=== PATIENT | male | born 1985 | race Hispanic/Latino ===

== ENCOUNTER 2017-12-22 09:41 | Emergency (ER) | payer OTHER ==
[2017-12-22 10:22] LABS: BASOPHILS % (AUTO) 0.7 % (0.0-5.0); EOSINOPHILS % (AUTO) 1.5 % (0.0-8.0); HEMATOCRIT 46.6 % (42-54); LYMPHOCYTES % (AUTO) 18.4 % (21.0-51.0); MEAN CORPUSCULAR HEMOGLOBIN 28.1 pg (27.0-33.0); MEAN CORPUSCULAR HGB CONC 34.7 g/dL (32.0-36.0); MONOCYTES % (AUTO) 6.2 % (3.0-13.0); NEUTROPHILS % (AUTO) 73.2 % (40.0-77.0); PLATELET COUNT (AUTO) 239 K/uL (130-400); RED BLOOD CELL COUNT(AUTO) 5.75 MIL/uL (4.50-6.20); RED CELL DISTRIBUTION WIDTH 13.6 % (11.0-15.5)
[2017-12-22] MEDS ORDERED: ONDANSETRON HCL MDV 20ML 2 MG/ML VIAL ONE (10:22)
[2017-12-22] MEDS ORDERED: MORPHINE SULFATE 4 MG/1ML SYG ONE (10:22)
[2017-12-22] MEDS ORDERED: SODIUM CHLORIDE 0.9% 1000ML 1,000 ML IV ONE (10:22)
[2017-12-22] MEDS ORDERED: LORAZEPAM 2 MG/ML 1 ML VIAL ONE (10:23)
[2017-12-22 10:53] LABS: CREATININE 0.9 mg/dL (0.5-1.5); POTASSIUM 3.8 mmol/L (3.5-5.1)
[2017-12-22 10:58] LABS: ALBUMIN 4.1 g/dL (3.5-5.0); BILIRUBIN,TOTAL 0.4 mg/dL (0.2-1.0); TOTAL PROTEIN, SERUM 8.2 g/dL (6.0-8.3)
== END 2017-12-22 13:44 | disposition home or self-care (01) ==
LOC: EDH 09:41
DX: T75.4XXA Electrocution, initial encounter (principal); M79.1 Myalgia; Z72.0 Tobacco use; W86.8XXA Exposure to other electric current, initial encounter; Y93.89 Activity, other specified; Y92.69 Other specified industrial and construction area as the place of occurrence of the external cause; Y99.8 Other external cause status
CPT/HCPCS: 36415; 71045; 73030; 80053; 82550; 84484; 85025; 93005; 96361; 96374; 96375; 99285; J2060; J2270; J7030

== ENCOUNTER 2018-02-16 09:19 | Emergency (ER) | payer OTHER ==
[2018-02-16] MEDS ORDERED: CEFTRIAXONE SODIUM 1 GM ONE (09:51)
[2018-02-16] MEDS ORDERED: SODIUM CHLORIDE 0.9% 1000ML 1,000 ML IV ONE (09:51)
[2018-02-16] MEDS ORDERED: DEXAMETHASONE SOD PHOSPHATE 10MG/ML 1ML VIAL ONE (09:51)
[2018-02-16] MEDS ORDERED: KETOROLAC TROMETHAMINE 30MG/ML ONE (09:52)
[2018-02-16 09:58] LABS: BASOPHILS % (AUTO) 0.5 % (0.0-5.0); EOSINOPHILS % (AUTO) 0.9 % (0.0-8.0); HEMATOCRIT 44.4 % (42-54); LYMPHOCYTES % (AUTO) 10.4 % (21.0-51.0); MEAN CORPUSCULAR HEMOGLOBIN 28.3 pg (27.0-33.0); MEAN CORPUSCULAR HGB CONC 34.8 g/dL (32.0-36.0); MEAN CORPUSCULAR VOLUME 81.4 fL (79-99); MONOCYTES % (AUTO) 8.9 % (3.0-13.0); NEUTROPHILS % (AUTO) 79.3 % (40.0-77.0); NUCLEATED RED BLOOD CELLS 0.1 % (0.0-0.19); PLATELET COUNT (AUTO) 195 K/uL (130-400); RED BLOOD CELL COUNT(AUTO) 5.45 MIL/uL (4.50-6.20); RED CELL DISTRIBUTION WIDTH 13.7 % (11.0-15.5); WHITE BLOOD COUNT (AUTO) 12.5 K/uL (4.8-10.8)
[2018-02-16 10:03] LABS: CREATININE 0.9 mg/dL (0.5-1.5)
== END 2018-02-16 11:11 | disposition home or self-care (01) ==
LOC: EDH 09:19
DX: J02.0 Streptococcal pharyngitis (principal); E86.0 Dehydration; R11.2 Nausea with vomiting, unspecified; R50.81 Fever presenting with conditions classified elsewhere; Z72.0 Tobacco use
CPT/HCPCS: 36415; 80048; 85025; 87880; 96361; 96374; 96375; 99284; J0696; J1100; J1885; J7030

== ENCOUNTER 2019-09-13 08:29 | Emergency (ER) | payer SELFPAY | END 2019-09-13 09:53 | disposition home or self-care (01) | LOC: EDH 08:29 | DX: H61.21 Impacted cerumen, right ear (principal); Z72.0 Tobacco use | CPT/HCPCS: 99281 ==